=== PATIENT | female | born 1995 | race Hispanic/Latino ===

== ENCOUNTER → 2022-12-09 | Outpatient (CLI) | payer SELFPAY | END | disposition home or self-care (01) | LOC: ICE 12:55 | PROVIDERS: ATTEND Hospitalist | DX: Z20.822 Contact with and (suspected) exposure to COVID-19 (principal) | CPT/HCPCS: 87426 ==

== ENCOUNTER 2023-01-14 12:11 | Emergency (ER) | payer OTHER, SELFPAY ==
[~2023-01-14] VITALS: Ht 149.9 cm; Wt 65.8 kg
[2023-01-14 12:14] VITALS: BP 130/76
[2023-01-14 20:11] LABS: HEPATITIS C ANTIBODY Non-Reactive (Nonreactive)
== END 2023-01-14 12:57 | disposition home or self-care (01) ==
LOC: EDH 12:11
DX: H57.89 Other specified disorders of eye and adnexa (principal); Z88.8 Allergy status to other drugs, medicaments and biological substances
CPT/HCPCS: 36415; 86701; 86704; 86706; 87390; 87520

== ENCOUNTER 2023-07-05 12:28 | Emergency (ER) | payer OTHER ==
[~2023-07-05] VITALS: Ht 149.9 cm; Wt 65.8 kg
[2023-07-05 12:54] VITALS: BP 113/78; PULSE 64; RESP 16; O2SAT 97
[2023-07-05 13:49] LABS: CREATININE 0.6 mg/dL (0.5-1.5); POTASSIUM 4.1 mmol/L (3.5-5.1)
[2023-07-05 13:53] LABS: BILIRUBIN,DIRECT 0.1 mg/dL (0.0-0.3); BILIRUBIN,TOTAL 0.1 mg/dL (0.2-1.0); PHOSPHORUS 4.5 mg/dL (2.5-4.9); TOTAL PROTEIN, SERUM 7.6 g/dL (6.0-8.3)
[2023-07-06 04:05] LABS: HEPATITIS C ANTIBODY Non-Reactive (Nonreactive)
== END 2023-07-05 14:31 | disposition home or self-care (01) ==
LOC: EDH 12:28
DX: Z77.21 Contact with and (suspected) exposure to potentially hazardous body fluids (principal); Z88.2 Allergy status to sulfonamides; Z88.8 Allergy status to other drugs, medicaments and biological substances
CPT/HCPCS: 36415; 80069; 80076; 86701; 86704; 86706; 87390; 87520

== ENCOUNTER → 2023-08-26 | Outpatient (CLI) | payer OTHER ==
[2023-08-26 10:15] LABS: CREATININE 0.7 mg/dL (0.5-1.5)
== END | disposition home or self-care (01) ==
LOC: LAB 08:46
PROVIDERS: ATTEND Obstetrics & Gynecology
DX: E22.1 Hyperprolactinemia (principal)
CPT/HCPCS: 36415; 82565; 84520

== ENCOUNTER 2023-11-02 14:19 | Emergency (ER) | payer OTHER ==
[~2023-11-02] VITALS: Ht 149.9 cm; Wt 65.8 kg
[2023-11-02 15:15] VITALS: BP 121/79; PULSE 75; RESP 20
[2023-11-02] MEDS ORDERED: ACETAMINOPHEN 500 MG TABLET PO ONE (18:00)
== END 2023-11-02 22:57 | disposition left against medical advice (07) ==
LOC: EDH 14:19
DX: M54.50 Low back pain, unspecified (principal); Z88.2 Allergy status to sulfonamides; Z88.8 Allergy status to other drugs, medicaments and biological substances
CPT/HCPCS: 36415; 84703